=== PATIENT | male | born 1950 | race Two or more races ===

== ENCOUNTER 2023-11-22 07:33 | Outpatient (CLI) | payer OTHER | END 2023-11-22 07:41 | disposition home or self-care (01) | LOC: RX STUDY 07:33 | PROVIDERS: ATTEND Internal Medicine Gastroenterology | DX: K57.30 Diverticulosis of large intestine without perforation or abscess without bleeding (principal); K64.0 First degree hemorrhoids; Z86.010 Personal history of colon polyps; K63.5 Polyp of colon ==